=== PATIENT | male | born 1995 | race Caucasian/White ===

== ENCOUNTER 2017-06-01 23:22 | Emergency (ER) | END 2017-06-02 00:23 | disposition home or self-care (01) | DX: J02.9 Acute pharyngitis, unspecified (principal); R09.82 Postnasal drip; R09.81 Nasal congestion ==

== ENCOUNTER 2017-06-04 10:33 | Emergency (ER) | payer MEDICAID ==
[~2017-06-04] VITALS: Ht 180.3 cm; Wt 86.0 kg
[~2017-06-04 10:33] MED LIST: FLUT9.9S NASAL; LORA5TAB4 PO
[2017-06-04 10:36] VITALS: Ht 180.3 cm; Wt 86.0 kg
[2017-06-04] MEDS ORDERED: IBUP-1542 PO (11:58)
[2017-06-04] MEDS ORDERED: AMO500 PO (11:58)
--- NOTE | 2017-06-04 12:35 | ERD ---
ER Documentation Chief Complaint Date/Time DATE: 06/04/17 TIME: 12:27 Chief Complaint 9/10 throat pain x 3 weeks with 6/10 ear pain x yesterday HPI 21-year-old male patient with no significant past medical history presents the ED complaining of sore throat that started intermittently 3 weeks ago. Patient reports that the symptoms are worse at night. States that his right ear started to become painful. Describes the pain as achy and rates it a 9 out of 10. States that he tried taking Flonase and Loratadine that was prescribed on June 02, 2017. Denies any fever, chills, abdominal pain, nausea, vomiting, diarrhea. Patient's up-to-date with his vaccinations. Denies any dysphagia or odynophagia. ROS All systems reviewed and are negative except as per history of present illness. Medications Home Meds Active Scripts Ibuprofen* (Motrin*) 600 Mg Tab, 600 MG PO Q8, #30 TAB Prov:SWEETIE VANCE PA-C 06/04/17 Amoxicillin* (Amoxicillin*) 500 Mg Cap, 500 MG PO TID for 10 Days, CAP Prov:SWEETIE VANCE PA-C 06/04/17 Fluticasone Propionate (Flonase Allergy Relief) 9.9 Ml [place].susp, 2 SPRAY NASAL DAILY, #1 BOTTLE TO EACH NOSTRIL Prov:CANDE BETANCUR PA-C 06/01/17 Loratadine* (Claritin*) 5 Mg Tab.rapdis, 5 MG PO DAILY, #30 TAB Prov:CANDE BETANCUR PA-C 06/01/17 Allergies Allergies: Coded Allergies: No Known Allergy (Unverified , 06/04/17) PMhx/Soc Medical and Surgical Hx: pt denies Medical Hx, pt denies Surgical Hx History of Surgery: No Anesthesia Reaction: No Hx Neurological Disorder: No Hx Respiratory Disorders: No Hx Cardiac Disorders: No Hx Psychiatric Problems: No Hx Miscellaneous Medical Probl: No Hx Alcohol Use: No Hx Substance Use: No Hx Tobacco Use: No Smoking Status: Never smoker Physical Exam Vitals Vital Signs Date Time Temp Pulse Resp B/P Pulse Ox O2 Delivery O2 Flow Rate FiO2 06/04/17 10:36 99.1 113 22 138/82 100 Physical Exam Const: [id number], well-nourished. In no acute distress. Head: Atraumatic, normocephalic Eyes: Normal Conjunctiva without injection. No purulent discharge. PERRL. EOMI ENT: Normal external ear. Ear canal without erythema. Tympanic membrane pearly cline without effusion or bulging. Nasal canal clear with normal turbinates. Moist oropharynx with slight right tonsillar exudates. Non-erythematous pharynx. Uvula midline. No drooling. No trismus. Neck: Full range of motion. No meningismus. No cervical lymphadenopathy. Resp: Clear to auscultation bilaterally. No wheezing, rhonchi, rales, or crackles. No accessory muscle use. No retractions. Cardio: Regular rate and rhythm. No murmurs, rubs or gallops. Abd: Soft, non tender, non distended. Normal bowel sounds. No palpable masses. No rebound tenderness. No guarding. Skin: No petechiae or rashes Back: No midline tenderness. No CVA tenderness. Ext: No cyanosis, or edema. Neur: Awake and alert. Psych: Normal Mood and Affect Procedures/MDM This is a 21-year-old male patient with no cervical past medical history presents to the ED complaining of sore throat that started intermittently for 3 weeks. Patient is afebrile and nontoxic-appearing. Patient has normal vital signs. Patient's physical exam is consistent with presumed strep pharyngitis. Based on [employer] Criteria - slight tonsillar exudates, no cough, patient is appropriate for outpatient antibiotics. Patient's physical exam include lungs which were clear to auscultation and a normal pulse oximetry. Bilateral ears pearly garcía. No tenderness to palpation of tragus or mastoid. Low suspicion for mastoiditis, otitis externa, otitis media. Patient is speaking in full sentences. There is a low suspicion for pneumonia, epiglottitis, croup, sinusitis, peritonsillar abscess, hands foot mouth disease, scarlet fever, Kawasaki disease, retropharyngeal abscess, meningitis, sepsis, acute abdomen or other emergent conditions. Discharge medications: Ibuprofen, Amoxicillin Instructed parent to bring patient to follow up with printed circuit board assembler in 1-2 days. Instructed parent to bring patient back to the ED sooner for any worsening symptoms. Parent's questions were answered. Parent understood and agreed with discharge plan. Patient discharged stable. Departure Diagnosis: Primary Impression: Pharyngitis Pharyngitis/tonsillitis etiology: unspecified etiology Qualified Code: J02.9 - Pharyngitis, unspecified etiology Additional Impression: Right ear pain Condition: Stable Patient Instructions: Otitis Media, Abx Tx (Adult), Pharyngitis, Strep ( Presumed) Referrals: [facility] YOU HAVE RECEIVED A MEDICAL SCREENING EXAM AND THE RESULTS INDICATE THAT YOU DO NOT HAVE A CONDITION THAT REQUIRES URGENT TREATMENT IN THE EMERGENCY DEPARTMENT. FURTHER EVALUATION AND TREATMENT OF YOUR CONDITION CAN WAIT UNTIL YOU ARE SEEN IN YOUR DOCTORS OFFICE WITHIN THE NEXT 1-2 DAYS. IT IS YOUR RESPONSIBILITY TO MAKE AN APPOINTMENT FOR FOLOW-UP CARE. IF YOU HAVE A PRIMARY DOCTOR --you should call your primary doctor and schedule an appointment IF YOU DO NOT HAVE A PRIMARY DOCTOR YOU CAN CALL OUR PHYSICIAN REFERRAL HOTLINE AT IF YOU CAN NOT AFFORD TO SEE A PHYSICIAN YOU CAN CHOSE FROM THE FOLLOWING [facility] [address] [facility]. [facility] [address] [facility] [facility] [address] [facility] [facility] [facility] [address] [facility]. [facility] [address] [facility] [facility]. [address] [facility]. [facility] YOU HAVE RECEIVED A MEDICAL SCREENING EXAM AND THE RESULTS INDICATE THAT YOU DO NOT HAVE A CONDITION THAT REQUIRES URGENT TREATMENT IN THE EMERGENCY DEPARTMENT. FURTHER EVALUATION AND TREATMENT OF YOUR CONDITION CAN WAIT UNTIL YOU ARE SEEN IN YOUR DOCTORS OFFICE WITHIN THE NEXT 1-2 DAYS. IT IS YOUR RESPONSIBILITY TO MAKE AN APPOINTMENT FOR FOLOW-UP CARE. IF YOU HAVE A PRIMARY DOCTOR --you should call your primary doctor and schedule and appointment IF YOU DO NOT HAVE A PRIMARY DOCTOR YOU CAN CALL OUR PHYSICIAN REFERRAL HOTLINE AT . IF YOU CAN NOT AFFORD TO SEE A PHYSICIAN YOU CAN CHOSE FROM THE FOLLOWING [facility] INSTITUTIONS: [facility] [address] [place] [address] [facility] [address] [place] [address] [facility] + [facility] [address] [place] [address] [facility] URGENT CARE/SPECIALTIES Additional Instructions: Call your primary care doctor for an appointment during the next 2 days.See the doctor sooner or return here if your condition worsens before your appointment time. SWEETIE VANCE PA-C Jun 04, 2017 12:35
== END 2017-06-04 12:30 | disposition home or self-care (01) ==
LOC: FTE 10:33
DX: J02.9 Acute pharyngitis, unspecified (principal); H92.01 Otalgia, right ear
CPT/HCPCS: 99283

== ENCOUNTER 2018-07-19 22:16 | Inpatient (IN) | END 2018-07-21 19:00 | disposition home or self-care (01) | DRG 343 ==

== ENCOUNTER 2018-07-21 22:12 | Emergency (ER) | END 2018-07-22 00:07 | disposition left against medical advice (07) ==

== ENCOUNTER 2018-07-22 10:47 | Emergency (ER) | END 2018-07-22 15:13 | disposition home or self-care (01) ==